=== PATIENT | female | born 1970 | race Caucasian/White ===

== ENCOUNTER 2019-01-03 03:58 | Emergency (ER) | payer OTHER ==
[~2019-01-03] VITALS: Ht 160 cm; Wt 70.3 kg
[2019-01-03] MEDS ORDERED: DIOVAN40 MG (04:15)
== END 2019-01-03 12:19 | disposition home or self-care (01) ==
LOC: ER 03:58
DX: N93.8 Other specified abnormal uterine and vaginal bleeding (principal)